=== PATIENT | female | born 1965 | race Caucasian/White ===

== ENCOUNTER 2022-02-27 13:49 | Outpatient (CLI) | payer OTHER ==
[2022-02-27] MEDS ORDERED: Magnevist 469MG/ML 20 ML VIAL ONE (15:48)
== END 2022-02-27 13:50 | disposition home or self-care (01) ==
LOC: CSHCT 13:49
PROVIDERS: ATTEND Family Medicine
DX: Z12.2 Encounter for screening for malignant neoplasm of respiratory organs (principal); F17.210 Nicotine dependence, cigarettes, uncomplicated; R42 Dizziness and giddiness; R55 Syncope and collapse; H53.9 Unspecified visual disturbance
CPT/HCPCS: 70553; 71271; A9579